=== PATIENT | male | born 1955 | race Hispanic/Latino ===

== ENCOUNTER 2016-08-13 07:56 | Day surgery (SDC) | payer MEDICARE ==
[2016-08-11 10:50] VITALS: BMI 36.3
[2016-08-13] MEDS ORDERED: Propofol 10 mg/ml Inj (20 ML) ONE (09:09)
[2016-08-13] MEDS ORDERED: Sodium Chloride 0.9% 1,000 ML IV SCH (09:45)
[2016-08-13 13:03] VITALS: BP 133/80; PULSE 75; RESP 17; TEMP 97.9; O2SAT 96
== END 2016-08-13 11:26 | disposition home or self-care (01) ==
LOC: ENDO 07:56
PROVIDERS: ATTEND Internal Medicine Gastroenterology
DX: K22.70 Barrett's esophagus without dysplasia (principal); K31.7 Polyp of stomach and duodenum; K29.50 Unspecified chronic gastritis without bleeding; B96.81 Helicobacter pylori [H. pylori] as the cause of diseases classified elsewhere; K21.9 Gastro-esophageal reflux disease without esophagitis; I10 Essential (primary) hypertension; E78.5 Hyperlipidemia, unspecified
CPT/HCPCS: 43239; 88305; 88312; 88342; J2704; J7040

== ENCOUNTER 2017-05-24 06:23 | Day surgery (SDC) | payer MEDICARE ==
[2017-05-17 08:06] VITALS: BMI 37.4
[2017-05-24] MEDS ORDERED: Phenylephrine 10 mg/ml Inj ONE (06:49)
[2017-05-24] MEDS ORDERED: Verapamil 0 ML ONE (06:49)
[2017-05-24] MEDS ORDERED: Lidocaine 2% Inj (20ml) ONE (06:49)
[2017-05-24] MEDS ORDERED: Midazolam 2 MG/2 ML VIAL ONE ×2 (06:50→07:21)
[2017-05-24] MEDS ORDERED: Iohexol 350mgl/ml 50 ML ONE (06:51)
[2017-05-24] MEDS ORDERED: Iodixanol 320 MG/ML 100 ML BOTTLE IV ONE (06:51)
[2017-05-24] MEDS ORDERED: Nitroglycerin 50mg in D5W 50 MG/250 ML BOTTLE IV ONE (06:51)
[2017-05-24] MEDS ORDERED: Iodixanol 320 MG/ML 200 ML BOTTLE IV ONE (06:51)
[2017-05-24 07:16] LABS: BASO # 0.05 K/mm3 (0.0-2.0); BASO % 0.7 % (0.0-3.0); EOS # 0.3 (0.0-0.7); EOS % 3.8 % (1.5-5.0); GRAN # 3.28 (1.4-6.5); GRAN % 48.5 % (50.0-68.0); HEMOGLOBIN 13.4 g/dL (14.0-18.0); LYMPH # 2.6 (1.2-3.4); MEAN CORPUSCULAR HEMOGLOBIN 29.9 pg (25.0-35.0); MEAN CORPUSCULAR HGB CONC 35.2 g/dl (31.0-37.0); MEAN PLATELET VOLUME 9.4 fl (7.0-11.0); MONO # 0.5 (0.1-0.6); RBC 4.48 10^6/uL (3.5-6.1); WHITE BLOOD COUNT 6.8 10^3/ul (4.5-11.0)
[2017-05-24 07:22] LABS: BLOOD UREA NITROGEN 13 mg/dL (7-21); CALCIUM 9.5 mg/dL (8.4-10.5); GFR AFRICAN-AMERICAN > 60; GFR NON-AFRICAN AMERICAN > 60; HDL CHOLESTEROL 45 mg/dL (29-60)
[2017-05-24 07:30] LABS: LDL CHOLESTEROL 106 mg/dL (0-129)
[2017-05-24 07:33] LABS: INR 0.99 (0.93-1.08); PARTIAL THROMBOPLASTIN TIME 29.2 Seconds (25.1-36.5); PROTHROMBIN TIME 11.4 SECONDS (9.4-12.5)
[2017-05-24] MEDS ORDERED: Sodium Chloride 0.9% 1,000 ML IV SCH (08:45)
[2017-05-24 09:16] VITALS: TEMP 97.6
[2017-05-24 09:17] VITALS: RESP 20
--- NOTE | 2017-05-24 09:34 | CARD ---
APPROVED REPORT EKG Measurement Heart [id number] <Conclusion> Normal sinus rhythm Left axis deviation/LAHB Right bundle branch block NSSTW changes, new since 04/30/14
--- NOTE | 2017-05-24 10:12 | CPOSTOP ---
DATE: 05/24/2017 CARDIOVASCULAR LAB POSTPROCEDURE NOTE (LEFT HEART CATH) DICTATING PHYSICIAN: Yayo Juarez MD. SALES REPRESENTATIVE SUPERVISOR: MARTA Bowling, communication technician. TYPE OF ANESTHESIA USED: Moderate conscious sedation. Total dose given 3 mg of Versed, 100 of fentanyl periodically. Started at 1 mg of Versed and 50 of fentanyl. PRE-PROCEDURE DIAGNOSES: Unstable angina, abnormal stress test. PROCEDURE PERFORMED: Left heart catheterization. FINDINGS: Distal small vessel disease. Distal LAD 55-60% diffuse disease. Distal PDA 100% occlusion. Very small vessel with bridge collaterals. Preserved LV function. FINAL DIAGNOSIS: Small vessel disease, preserved left ventricular function. RECOMMENDATION: Medical treatment. POST PROCEDURE CONDITION: Stable. VASCULAR ACCESS: Right femoral. CLOSURE DEVICE APPLIED: Angio-Seal. RADIATION DOSE: 5238.0 mGycm2. FLUORO TIME: 1.6 minutes. Yayo Juarez MD MTDD
[2017-05-24 14:54] VITALS: BP 138/70; PULSE 68; O2SAT 98
--- NOTE | 2017-05-24 19:10 | CARD ---
APPROVED REPORT Procedure(s) performed: Left Heart Catheterization HISTORY 65%. (EF Method: Echocardiogram), peripheral vascular disease, previous diagnostic cath, hypertension , dyslipidemia , abnormal stress test. INDICATION The indication(s) include : positive stress test. CASE TECHNIQUE The patient was brought electively to the Cardiac Catheterization Laboratory in a fasting state and was prepped and draped in a sterile manner. The right femoral groin was infiltrated with 2% Lidocaine subcutaneous anesthesia. A 6 Fr x 11 cm Miranda sheath was inserted into the right femoral artery without difficulty. Coronary angiography was performed using coronary diagnostic catheters. The left coronary system was accessed and visualized with a Diagnostic , 6F JL4 CATH DXT 100 CM catheter. The right coronary system was accessed and visualized with a Diagnostic,6 Fr Performa JR 4 catheter. The left ventricle was accessed and visualized with a 6F PIGTAIL 145 CATH DXT 110 CM catheter. Left ventricular/Aortic Valve gradient assessed on pullback. Left ventriculogram was performed in WARE projection. Closure device was deployed with a 6 Fr Angio-Seal without any complications. The patient tolerated the procedure well and there were no complications associated with the procedure. Vessel Analysis The patient's coronary anatomy is co-dominant. The left main coronary artery is a large size vessel with diffuse calcification noted throughout this vessel and without significant stenosis. The left main bifurcates to the left anterior descending and circumflex. The left anterior descending artery is a medium size vessel with diffuse calcification noted throughout this vessel and without significant stenosis. Distal LAD near apex diffusely diseased There is a 55-60% stenosis in the verydistal segment near apex. The first diagonal branch is a large size vessel with diffuse calcification noted throughout this vessel and without significant stenosis. The circumflex artery is a large size vessel with diffuse calcification noted throughout this vessel and without significant stenosis. The first obtuse marginal branch is a medium size vessel with diffuse calcification noted throughout this vessel and without significant stenosis. The second obtuse marginal branch is a medium size vessel with diffuse calcification noted throughout this vessel and without significant stenosis. The left posterior descending artery is a large size vessel with diffuse calcification noted throughout this vessel and without significant stenosis. The right coronary artery is a large size vessel with diffuse calcification noted throughout this vessel and without significant stenosis. The right posterior descending artery is a medium size vessel with diffuse calcification noted throughout this vessel and with significant stenosis. There is a 100% stenosis in the distal segment. with brige collaterals, distal PDA very small calibre vessel less than 1.5 mm in diameter Left Ventricle The left ventricle is normal in size with normal contractility. There was no cardiomyopathy. The left ventricular ejection fraction is estimated to be 65%%. The left ventricular end diastolic pressure is 20-25 mmHg. There was no gradient across the aortic valve upon pullback. Conclusion distal small Vessel Diz limited to Very Distal LAD and R PD, less tjhn 1.5 mm in diameter not suitable for PCI. Preseved LV Fx. Ef-65%, EDP-20-25 mmof Hg. essentially unchanged Cath findings from 11/12/2014. Recommendations Aggressive Medical TherapyCardiac Risk Reduction Program Weight Loss Reduction Program Add Diuretcs HCTZ 25 mg po daily in current regimen. CC; DRs. Plasencia / Yoan.
--- NOTE | 2017-05-25 06:43 | HP ---
REASON FOR ADMISSION: Left heart cath, possible angioplasty, and abnormal stress test. BRIEF CLINICAL HISTORY: This is a 61-year-old male with past medical history significant for coronary artery disease, status post cardiac cath on 11/12/2014, recently repeated stress test, abnormal. So, the patient is scheduled for elective cardiac cath, possible angioplasty. PAST MEDICAL HISTORY: Significant for hypertension, hyperlipidemia, coronary artery disease, and abnormal stress test. PREVIOUS CARDIAC WORKUP: The patient had a cardiac catheterization on 11/12/2014 that revealed nonobstructive coronary artery disease, limited mid and distal LAD and very distal RPD of 70% to 80%, not suitable for PCI, less than 1.5 mm vessel, preserved LV function, ejection fraction 65%, EDP was in the range of 15 mmHg, very tortous left subclavian multiple hairpin turns. The cath started from left radial but could not engage RCA, so right femoral approach done for RCA. At that time, the recommendation was aggressive medical treatment, risk factors modification, and emphasis on weight reduction, dated 11/12/2014. The patient had recently an echo and a stress test done. Echo dated 04/30/2017 is a myocardial perfusion study, sestamibi, that shows probably abnormal myocardial perfusion study, reversible inferior defect suggestive for ischemia, normal gaited valve motion. In comparison to the last study on 05/01/ , the defect appears new. The patient had echocardiography on 05/03/2017 that showed ejection fraction 65%, [id number] aortic regurgitation, mild mitral regurgitation, trace tricuspid regurgitation, trace pulmonary insufficiency. CURRENT MEDICATIONS: The patient is taking amlodipine, ranitidine, enalapril, Colace, atorvastatin, and aspirin. ALLERGIES: NO KNOWN DRUG ALLERGIES. REVIEW OF SYSTEMS: As per HPI. PHYSICAL EXAMINATION: VITAL SIGNS: Height of the patient 5 feet 4 inches, weight of the patient 218 pounds, body mass index 37.4 kg per m2. Temperature afebrile, heart rate 80, and blood pressure 148/94. HEENT: PERRLA. Extraocular muscles intact. NECK: Supple. No carotid bruit or thyromegaly. CHEST: Clear to auscultation. HEART: S1 and S2 regular. ABDOMEN: Soft. EXTREMITIES: Clubbing and cyanosis negative. LABORATORY DATA: Blood workup pending. IMPRESSION: Abnormal stress test, hypertension, hyperlipidemia, previous catheterization dated 11/12/2014 shows distal left anterior descending, distal right coronary artery disease, right posterior descending coronary artery not suitable for percutaneous coronary intervention, very torturous left subclavian, started from the subclavian on last catheterization and ended up in the right femoral because could not engage right femoral. RECOMMENDATION: We will do the cardiac catheterization in the right femoral approach and possible angioplasty. We will wait for the blood workup is available. We will load with aspirin and Plavix. Further recommendation after the cardiac catheterization. We will follow with you. Thank you, Dr. Avalos/Dr. Plasencia for providing us an opportunity in taking care of patient, [place]. Yayo Juarez MD
== END 2017-05-24 15:15 | disposition home or self-care (01) ==
LOC: CATH 06:23
PROVIDERS: ATTEND Internal Medicine Cardiovascular Disease
DX: I25.10 Atherosclerotic heart disease of native coronary artery without angina pectoris (principal); E78.5 Hyperlipidemia, unspecified; I10 Essential (primary) hypertension; I73.9 Peripheral vascular disease, unspecified
CPT/HCPCS: 36415; 80048; 80061; 85025; 85610; 85730; 86850; 86900; 93005; 93458; 99152; C1760; C1769; C1887; C2629; J1644; J1940; J2250; J3010; J7040 ×2; Q9966; Q9967 ×2

== ENCOUNTER 2018-04-08 07:50 | Outpatient (CLI) | payer MEDICARE, MEDICAID | END 2018-04-08 07:51 | disposition home or self-care (01) | LOC: RAD 07:50 ==

== ENCOUNTER 2018-04-25 10:51 | Day surgery (SDC) | payer MEDICARE ==
[2017-05-17 08:06] VITALS: BMI 37.4
[2018-04-25 12:05] VITALS: TEMP 98
[2018-04-25] MEDS ORDERED: Propofol 10 mg/ml Inj (20 ML) ONE (13:08)
[2018-04-25] MEDS ORDERED: Sodium Chloride 0.9% 1,000 ML IV SCH (13:15)
[2018-04-25 15:30] VITALS: BP 127/83; PULSE 71; RESP 18; O2SAT 100
== END 2018-04-25 15:25 | disposition home or self-care (01) ==
LOC: ENDO 10:51
PROVIDERS: ATTEND Internal Medicine Gastroenterology
DX: K21.9 Gastro-esophageal reflux disease without esophagitis (principal); R10.13 Epigastric pain; K29.50 Unspecified chronic gastritis without bleeding; I10 Essential (primary) hypertension; K59.00 Constipation, unspecified; K22.70 Barrett's esophagus without dysplasia; E78.00 Pure hypercholesterolemia, unspecified; K27.9 Peptic ulcer, site unspecified, unspecified as acute or chronic, without hemorrhage or perforation; R14.0 Abdominal distension (gaseous); E66.9 Obesity, unspecified
CPT/HCPCS: 43239; 88305; 88312; 88342; J2001; J2704; J7030; J7040